=== PATIENT | male | born 1935 | race Caucasian/White ===

== ENCOUNTER → 2016-05-08 | Outpatient (CLI) | payer MEDICARE, BC ==
[~2016-05-08] MED LIST: ASPI325T PO; CALTTAB2 PO; FINA5TAB77 PO; METO25 PO; TERA5CAP3 PO; [UNRECOGNIZED DRUG - CODE] OR
[2016-05-08 10:07] LABS: BASOPHIL % 0.5 % (0.0-2.0); EOSINOPHIL % 1.1 % (0.0-4.0); HEMATOCRIT 40.1 % (39.0-51.0); HEMO FLAGS DIFF FINAL; LYMPH % 25.3 % (9.0-44.0); LYMPHOCYTE # 1.1 TH/MM3 (1.0-4.8); MEAN CELL VOLUME 97.5 FL (80.0-100.0); MEAN CORPUSCULAR HEMOGLOBIN 34.4 PG (27.0-34.0); MEAN CORPUSCULAR HGB CONC 35.3 % (32.0-36.0); MONO % 6.2 % (0.0-8.0); NEUT % 66.9 % (16.0-70.0); PLATELET COUNT 124 TH/MM3 (150-450); RED BLOOD COUNT 4.11 MIL/MM3 (4.50-5.90); RED CELL DISTRIBUTION WIDTH 14.2 % (11.6-17.2); WHITE BLOOD COUNT 4.4 TH/MM3 (4.0-11.0)
[2016-05-08 10:35] LABS: ALKALINE PHOSPHATASE 68 U/L (45-117); ALT (GPT) 21 U/L (12-78); ANION GAP 6 MEQ/L (5-15); AST (GOT) 14 U/L (15-37); BICARBONATE 27.5 MEQ/L (21.0-32.0); BLOOD UREA NITROGEN 12 MG/DL (7-18); CHLORIDE 109 MEQ/L (98-107); GLOMERULAR FILTRATION RATE 85 ML/MIN (>89); GLUCOSE,FASTING 87 MG/DL (74-99); HDL CHOLESTEROL 74.5 MG/DL (40.0-60.0); LDL CHOLESTEROL 87 MG/DL (0-99); POTASSIUM 3.8 MEQ/L (3.5-5.1); SODIUM (NA) 142 MEQ/L (136-145); TOTAL BILIRUBIN ADULT 0.7 MG/DL (0.2-1.0)
[2016-05-08 16:36] LABS: HEMOGLOBIN A1a 1.3 %; HEMOGLOBIN A1b 0.7 %; HEMOGLOBIN Ao 87.3 %; HEMOGLOBIN F 0.8 %; HEMOGLOBIN LA1C 1.7 %; HEMOGLOBIN P3 3.1 %
== END ==
LOC: PLAB 08:39
PROVIDERS: ATTEND Family Medicine
DX: R53.81 Other malaise (principal); I10 Essential (primary) hypertension; R73.01 Impaired fasting glucose; E78.4 Other hyperlipidemia
CPT/HCPCS: 36415; 80053; 80061; 83036; 84439; 84443; 85025

== ENCOUNTER → 2016-06-12 | Outpatient (CLI) | payer MEDICARE, BC | LOC: PLAB 07:31 | PROVIDERS: ATTEND Thoracic Surgery (Cardiothoracic Vascular Surgery) | DX: R94.4 Abnormal results of kidney function studies (principal) | CPT/HCPCS: 36415; 82565; 84520 ==

== ENCOUNTER → 2016-11-09 | Outpatient (CLI) | payer MEDICARE, BC ==
[2016-11-09 12:49] LABS: AUTOMATED NEUTROPHIL # 3.8 TH/MM3 (1.8-7.7); BASOPHIL % 0.5 % (0.0-2.0); EOSINOPHIL # 0.1 TH/MM3 (0-0.4); HEMATOCRIT 42.3 % (39.0-51.0); HEMO FLAGS DIFF FINAL; LYMPH % 21.2 % (9.0-44.0); LYMPHOCYTE # 1.1 TH/MM3 (1.0-4.8); MEAN CELL VOLUME 100.3 FL (80.0-100.0); MEAN CORPUSCULAR HEMOGLOBIN 34.2 PG (27.0-34.0); MEAN CORPUSCULAR HGB CONC 34.1 % (32.0-36.0); MONO % 6.9 % (0.0-8.0); NEUT % 70.4 % (16.0-70.0); PLATELET COUNT 133 TH/MM3 (150-450); RED BLOOD COUNT 4.22 MIL/MM3 (4.50-5.90); RED CELL DISTRIBUTION WIDTH 13.5 % (11.6-17.2); WHITE BLOOD COUNT 5.4 TH/MM3 (4.0-11.0)
[2016-11-09 13:19] LABS: ANION GAP 6 MEQ/L (5-15); AST (GOT) 16 U/L (15-37); BICARBONATE 26.8 MEQ/L (21.0-32.0); BLOOD UREA NITROGEN 14 MG/DL (7-18); CHLORIDE 108 MEQ/L (98-107); GLOMERULAR FILTRATION RATE 82 ML/MIN (>89); GLUCOSE,FASTING 94 MG/DL (74-99); POTASSIUM 3.8 MEQ/L (3.5-5.1); SODIUM (NA) 141 MEQ/L (136-145)
[2016-11-09 13:31] LABS: ALKALINE PHOSPHATASE 63 U/L (45-117); ALT (GPT) 20 U/L (12-78); FREE T4 1.19 NG/DL (0.76-1.46); HDL CHOLESTEROL 77.3 MG/DL (40.0-60.0); LDL CHOLESTEROL 87 MG/DL (0-99); TOTAL BILIRUBIN ADULT 0.8 MG/DL (0.2-1.0)
== END ==
LOC: PLAB 08:44
PROVIDERS: ATTEND Family Medicine
DX: E78.5 Hyperlipidemia, unspecified (principal); R94.6 Abnormal results of thyroid function studies
CPT/HCPCS: 36415; 80053; 80061; 84439; 84443; 85025

== ENCOUNTER → 2017-05-04 | Outpatient (CLI) | payer MEDICARE, BC ==
[2017-05-04 13:25] LABS: ALBUMIN 3.9 GM/DL (3.4-5.0); AST (GOT) 13 U/L (15-37); BICARBONATE 25.8 MEQ/L (21.0-32.0); BLOOD UREA NITROGEN 13 MG/DL (7-18); CALCIUM 8.5 MG/DL (8.5-10.1); CHLORIDE 110 MEQ/L (98-107); CHOLESTEROL 179 MG/DL (120-200); CREATININE 0.85 MG/DL (0.60-1.30); GLOMERULAR FILTRATION RATE 86 ML/MIN (>89); GLUCOSE,FASTING 82 MG/DL (74-99); SODIUM (NA) 142 MEQ/L (136-145)
[2017-05-04 13:27] LABS: AUTOMATED NEUTROPHIL # 2.9 TH/MM3 (1.8-7.7); BASOPHIL % 0.6 % (0.0-2.0); EOSINOPHIL # 0.1 TH/MM3 (0-0.4); EOSINOPHIL % 1.3 % (0.0-4.0); HEMATOCRIT 40.4 % (39.0-51.0); HEMOGLOBIN 14.1 GM/DL (13.0-17.0); LYMPH % 28.3 % (9.0-44.0); LYMPHOCYTE # 1.3 TH/MM3 (1.0-4.8); MEAN CELL VOLUME 98.3 FL (80.0-100.0); MEAN CORPUSCULAR HEMOGLOBIN 34.3 PG (27.0-34.0); MEAN CORPUSCULAR HGB CONC 34.9 % (32.0-36.0); MEAN PLATELET VOLUME 7.5 FL (7.0-11.0); MONOCYTE # 0.4 TH/MM3 (0-0.9); NEUT % 60.8 % (16.0-70.0); PLATELET COUNT 129 TH/MM3 (150-450); RED BLOOD COUNT 4.11 MIL/MM3 (4.50-5.90); RED CELL DISTRIBUTION WIDTH 13.2 % (11.6-17.2); WHITE BLOOD COUNT 4.8 TH/MM3 (4.0-11.0)
[2017-05-04 13:34] LABS: ALKALINE PHOSPHATASE 65 U/L (45-117); ALT (GPT) 17 U/L (12-78); CHOLESTEROL/ HDL RATIO 2.47 RATIO; FREE T4 1.09 NG/DL (0.76-1.46); HDL CHOLESTEROL 72.2 MG/DL (40.0-60.0); LDL CHOLESTEROL 90 MG/DL (0-99); TOTAL BILIRUBIN ADULT 0.8 MG/DL (0.2-1.0); TRIGLYCERIDES 82 MG/DL (42-150)
== END ==
LOC: PLAB 07:59
PROVIDERS: ATTEND Family Medicine
DX: E78.5 Hyperlipidemia, unspecified (principal); R94.6 Abnormal results of thyroid function studies
CPT/HCPCS: 36415; 80053; 80061; 84439; 84443; 85025

== ENCOUNTER → 2017-07-05 | Outpatient (CLI) | payer MEDICARE, BC ==
[2017-07-05 10:22] LABS: CREATININE 0.9 MG/DL (0.60-1.30)
== END ==
LOC: PLAB 07:25
PROVIDERS: ATTEND Thoracic Surgery (Cardiothoracic Vascular Surgery)
DX: R94.4 Abnormal results of kidney function studies (principal)
CPT/HCPCS: 36415; 82565; 84520